=== PATIENT | male | born 1995 | race Caucasian/White ===

== ENCOUNTER 2020-06-01 21:54 | Emergency (ER) | payer OTHER ==
[~2020-06-01] VITALS: Ht 188 cm; Wt 81.7 kg
[2020-06-01 21:57] VITALS: BP 120/69
[2020-06-01] MEDS ORDERED: NOHOMEMEDICATIONS (22:00)
[2020-06-01] MEDS ORDERED: HYDROCODONE-ACE15 ML PO (23:44)
[2020-06-01] MEDS ORDERED: PERIDEX15 ML SWISH&SPIT (23:44)
== END 2020-06-02 00:05 | disposition home or self-care (01) ==
LOC: ER 21:54
DX: S02.609A Fracture of mandible, unspecified, initial encounter for closed fracture (principal); S01.81XA Laceration without foreign body of other part of head, initial encounter; R55 Syncope and collapse; F17.210 Nicotine dependence, cigarettes, uncomplicated; W18.39XA Other fall on same level, initial encounter; Y93.89 Activity, other specified; Y92.89 Other specified places as the place of occurrence of the external cause; Y99.8 Other external cause status